=== PATIENT | female | born 1980 | race Caucasian/White ===

== ENCOUNTER → 2016-12-23 | Outpatient (REF) | payer OTHER ==
[2016-12-23 19:11] LABS: MEAN CORPUSCULAR HEMOGLOBIN 30.7 pg (27.0-33.0); MEAN CORPUSCULAR HGB CONC 34.9 g/dl (32.0-36.5); MEAN CORPUSCULAR VOLUME 88.1 fl (80.0-96.0); RED CELL DISTRIBUTION WIDTH 12.2 % (11.5-14.5); WHITE BLOOD COUNT 10.4 K/mm3 (4.0-10.0)
[2016-12-23 19:58] LABS: HCG, SERUM QUANTITATIVE 43219 MIU/ML
== END ==
LOC: M LAB REF 17:02
PROVIDERS: ATTEND Obstetrics & Gynecology
DX: O36.80X0 Pregnancy with inconclusive fetal viability, not applicable or unspecified (principal)

== ENCOUNTER → 2017-05-15 | Outpatient (CLI) | payer OTHER ==
[2017-05-15 19:03] LABS: MEAN CORPUSCULAR HEMOGLOBIN 31.6 pg (27.0-33.0); MEAN CORPUSCULAR HGB CONC 34.8 g/dl (32.0-36.5); MEAN CORPUSCULAR VOLUME 90.7 fl (80.0-96.0); RED CELL DISTRIBUTION WIDTH 12.4 % (11.5-14.5); WHITE BLOOD COUNT 12.2 K/mm3 (4.0-10.0)
== END ==
LOC: M WUC 11:09
PROVIDERS: ATTEND Obstetrics & Gynecology
DX: Z34.82 Encounter for supervision of other normal pregnancy, second trimester (principal); Z3A.26 26 weeks gestation of pregnancy

== ENCOUNTER 2017-08-11 08:33 | Inpatient (IN) | payer OTHER ==
[~2017-08-11] VITALS: Ht 167.6 cm; Wt 82.7 kg
[2017-08-11] VITALS (32 sets, daily range): BP systolic 86–171; BP diastolic 50–102
[2017-08-11] MEDS ORDERED: LACTATED RINGER'S 1000 ML IV STA (08:43)
[2017-08-11] MEDS ORDERED: LR 1,000 ML IV SCH (08:43)
[2017-08-11 09:15] LABS: MEAN CORPUSCULAR HEMOGLOBIN 30.5 pg (27.0-33.0); MEAN CORPUSCULAR HGB CONC 35.1 g/dl (32.0-36.5); MEAN CORPUSCULAR VOLUME 87.1 fl (80.0-96.0); PLATELET COUNT, AUTOMATED 303 10^3/uL (150-450); RED CELL DISTRIBUTION WIDTH 12.4 % (11.5-14.5); WHITE BLOOD COUNT 23.3 10^3/uL (4.0-10.0)
[2017-08-11] MEDS ORDERED: PRENTAB9 PO (09:16)
[2017-08-11 09:28] LABS: ALT/SGPT 25 U/L (12-78); AST/SGOT 20 U/L (7-37); BILIRUBIN,TOTAL 0.7 MG/DL (0.2-1.0); CREATININE FOR GFR 0.76 MG/DL (0.55-1.02); GLOMERULAR FILTRATION RATE > 60.0 (>60); URIC ACID 3.5 MG/DL (2.6-6.0)
[2017-08-11] MEDS ORDERED: OXYTOCIN 30 UNITS IN 0.9% NaCl 500ML IV BAG (J2590) As Ordered ONE (09:28)
[2017-08-11] MEDS ORDERED: FENTANYL 2MCG/ML ROPIVACAINE 0.2% IN 0.9% NACL 200ML IVBAG As Ordered ONE (09:28)
--- NOTE | 2017-08-11 10:42 | HPEPDOC ---
Obstetrical History & Physical General Date of Admission Aug 11, 2017 at 08:33 Primary Care Physician: TASIA ALLAN CNM History of Present Illness Patient is a 36-year-old female who is 40 weeks gestation with an CEASAR of based off of her 1st trimester ultrasound and consistent with her LMP. She initiated care in her 1st trimester with [facility]. Her care has been complicated by AMA and now recently diagnosed based off of her BP's today with GHTN. She presents to L&D in active labor. Reports active movement, bloody show, and contractions. Denies leaking of fluid. 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), Human papillomavirus(HPV) Past Medical History Surgical History: Denies/None Family History Significant Family History: Cancer (lung) Social History Marital Status: Family situation: Spouse/partner home Psychosocial History: No pertinent psych hx * Smoker: former Smoker Alcohol: Denies Drugs: denies Abuse Violence Screening Have you been hit/kicked/slapp: No Have you been sexually assault: No Allergies Coded Allergies: No Known Allergies (Unverified , 08/11/17) Medications Scheduled Multivitamins/ ( 27-0.8 mg) 1 Tab Tab, 1 TAB PO DAILY Physical Examination Physical Examination GENERAL: Alert and oriented times three. BREAST: . ABDOMEN: Gravid and non-tender to touch. FETUS: Is vertex (VTX) by sterile vaginal examination (SVE), fetus is vertex ( VTX) by Ashwin. HEART RATE: Regular rate and rhythm. LUNGS: Clear to auscultation (CTA). EXTREMITIES: No edema. No clonus. Deep tendon reflexes (DTRs) + . Vital Signs/I&O Vital Signs Date Time Temp Pulse Resp B/P (MAP) Pulse Ox O2 Delivery O2 Flow Rate FiO2 08/11/17 08:53 99.7 88 18 128/73 (91) Room Air I&O- Last 24 Hours up to 6 AM 08/12/17 06:00 Intake Total 1000 ml Balance 1000 ml Laboratory Data 24H LABS Laboratory Tests 2 08/11/17 08:39: Serology Scanned Report Hepatitis B Testing 08/11/17 08:51: Nucleated Red Blood Cells % (auto) 0.0, Glomerular Filtration Rate > 60.0, Creatinine 0.76, Aspartate Amino Transf (AST/SGOT) 20, Alanine Aminotransferase (ALT/SGPT) 25, Lactate Dehydrogenase 146, Total Bilirubin 0.7, Uric Acid 3.5, Urine Amphetamines Screen NEGATIVE, Urine Benzodiazepines Screen NEGATIVE, Urine Opiates Screen NEGATIVE, Urine Methadone Screen NEGATIVE, Urine Barbiturates Screen NEGATIVE, Urine Phencyclidine Screen NEGATIVE, Urine Cocaine Metabolite Screen NEGATIVE, Urine Cannabinoids Screen NEGATIVE CBC/BMP Laboratory Tests 08/11/17 08:51 Red Blood Count 4.19, Mean Corpuscular Volume 87.1, Mean Corpuscular Hemoglobin 30.5, Mean Corpuscular Hemoglobin Concent 35.1, Red Cell Distribution Width 12.4 , Aspartate Amino Transf (AST/SGOT) 20, Alanine Aminotransferase (ALT/SGPT) 25, Lactate Dehydrogenase 146, Total Bilirubin 0.7, Uric Acid 3.5 Item Value Date Time Creatinine 0.76 MG/DL 08/11/17 0851 Glomerular Filtration Rate > 60.0 08/11/17 0851 Uric Acid 3.5 MG/DL 08/11/17 0851 Total Bilirubin 0.7 MG/DL 08/11/17 0851 Aspartate Amino Transf (AST/SGOT) 20 U/L 08/11/17 0851 Alanine Aminotransferase (ALT/SGPT) 25 U/L 08/11/17 0851 Lactate Dehydrogenase 146 U/L 08/11/17 0851 Urine Culture: No Growth Pertinent Laboratoy Data Blood Type: O+ RBC Antibody Screen: Negative HIV: Negative Hepatitis B: Negative Hepatitis C: Negative Rapid Plasma Reagin: Nonreactive Rubella: Immune Chlamydia/Gonorrhea: Negative Group B Streptococcus: Negative Quad Screen Test: Negative Glucose Tolerance Test: 115 Vaginal Examination Dilation: 9 cm Effacement: Other (100%) Station: 0 Presentation: Cephalic presentation Position: Vertex (occiput) Assessment Heart Rate (FHR): 135 Variability: Moderate Accelerations: Positive Decelerations: Early Tocometer Contractions: Yes Frequency: regular Strength: palpated as strong Multi-drug resistant Organism: No history of MDRO Assessment/Plan Assessment IUP at 40 weeks gestation GBS negative active labor Category I FHR tracing Plan Admit to labor and delivery. Dressmaker Or Tailor and consent. Diet: clears. OOB ad radhika. Group B Streptococcus (GBS) negative. Labs and intravenous (IV) per unit protocol. Lactated Ringers (LR): Bolus 800 mL, then at 125 mL/hr. Anesthesia consult per patient's desire Anticipate normal spontaneous delivery (). TASIA ALLAN CNM Aug 11, 2017 10:42
[2017-08-11] MEDS ORDERED: EPIDURAL COMMENT XX SCH (11:00)
[2017-08-11] MEDS ORDERED: ONDANSETRON 4MG/2ML VIAL (J2405) IV PRN (11:00)
[2017-08-11] MEDS ORDERED: ePHEDrine SULFATE 25 MG/5 ML(5MG/ML) SYRINGE IV PRN (11:00)
[2017-08-11] MEDS ORDERED: LACTATED RINGER'S 1000 ML IV PRN (11:00)
[2017-08-11] MEDS ORDERED: FENTANYL/ROPIVACAINE/NACL BAG 200 ML EPIDURAL SCH (11:00)
[2017-08-11] MEDS ORDERED: diphenhydrAMINE INJ 50MG/ML VIAL (J1200) IV PRN (11:00)
[2017-08-11] MEDS ORDERED: NALOXONE INJ 0.4 MG/1 ML VIAL (J2310) IV PRN (11:00)
[2017-08-11] MEDS ORDERED: EPIDURAL/PCA KEYS XX PRN (11:00)
[2017-08-11] MEDS ORDERED: REFRIGERATOR IV KEYS XX PRN (11:00)
[2017-08-11] MEDS ORDERED: OXYTOCIN DRIP 30 UNITS in APPROPRIATE DILUENT 1 EA IV SCH (14:38)
[2017-08-11] MEDS ORDERED: RHOGAM 300 MCG (1500 IU) INJ (J2790) IM SCH (14:45)
[2017-08-11] MEDS ORDERED: DOCUSATE SODIUM 100 MG CAP PO PRN (14:45)
[2017-08-11] MEDS ORDERED: ANUSOL HC CREAM 30GM TOP PRN (14:45)
[2017-08-11] MEDS ORDERED: MEASLES,MUMPS,RUBELLA VACCINE INJ (MMR-II) (90707) SC SCH (14:45)
[2017-08-11] MEDS ORDERED: DIBUCAINE 1% OINTMENT 30GM TOP PRN (14:45)
[2017-08-11] MEDS ORDERED: ACETAMINOPHEN 500 MG TAB PO PRN (14:45)
[2017-08-11] MEDS ORDERED: METHYLERGONOVINE MALEATE 0.2 MG TAB PO PRN (14:45)
[2017-08-11] MEDS: PRENATAL VITAMINS CHEWABLE TABLET PO SCH (17:00)
[2017-08-11] MEDS: IBUPROFEN 800 MG TAB PO PRN (20:02)
[2017-08-12 06:32] VITALS: BP 113/60
[2017-08-12] MEDS: PRENATAL VITAMINS CHEWABLE TABLET PO SCH (08:53)
[2017-08-12] MEDS: IBUPROFEN 800 MG TAB PO PRN ×2 (12:54→20:04)
--- NOTE | 2017-08-12 16:50 | DNPDOC ---
[facility] Delivery Note Delivery Note DATE OF DELIVERY: 08/11/17 AT 1200 PROCEDURE: Spontaneous vaginal delivery/ section. PROVIDER: Tasia Bernal CNM, HUI ANESTHESIA: epidural. ESTIMATED BLOOD LOSS: 350 mL. FINDINGS: 7 pounds 2 ounces, 3240 grams, male infant, Score 9/9, AMA, GHTN. DELIVERY SUMMARY: Patient is a 36-year-old now at 40 weeks gestation who presented to L&D in active labor. She received an epidural for pain management. She progressed to fully dilated at 10:46 and pushed to a live male infant in the CEDRIC position with restitution to ROT at 12:00. The anterior shoulder delivered with ease and the corpus immediately followed. The baby was placed on the maternal abdomen active and crying. The cord was clamped x 2 after pulsation ceased and cut by the FOB. There was a 3-vessel cord note.d The placenta delivered intact and spontaneously at 12:05. Uterine hemostasis was achieved via rapid infusion of IV Pitocin and uterine fundal massage. The vagina and perineum were inspected and found to have a 2nd degree perineal laceration that was repaired with a 3.0 Vicryl Rapide and a right labial laceration that was repaired with a 4.0 Vicryl Rapide. Both mom and baby are in stable condition. She breastfed well in the room. TASIA BERNAL CNM Aug 12, 2017 16:50
[2017-08-12 17:48] VITALS: BP 119/62
[2017-08-13 06:00] VITALS: BP 135/80
[2017-08-13] MEDS: IBUPROFEN 800 MG TAB PO PRN (07:48)
[2017-08-13] MEDS: PRENATAL VITAMINS CHEWABLE TABLET PO SCH (08:10)
[2017-08-13] MEDS ORDERED: IBUP-1114 PO (11:20)
[2017-08-13] MEDS ORDERED: ACET50TA PO (11:20)
== END 2017-08-13 12:30 | disposition home or self-care (01) | DRG 775 ==
LOC: M LDI 08:33 → M OBS 14:47
PROVIDERS: ADMIT Obstetrics & Gynecology; ATTEND Obstetrics & Gynecology
PROC: 10E0XZZ Delivery of Products of Conception, External Approach (ICD-10-PCS; principal; 2017-08-11)
PROC: 0KQM0ZZ Repair Perineum Muscle, Open Approach (ICD-10-PCS; 2017-08-11)
DX: O48.0 Post-term pregnancy (principal); Z37.0 Single live birth; Z3A.40 40 weeks gestation of pregnancy; O13.4 Gestational [pregnancy-induced] hypertension without significant proteinuria, complicating childbirth; O70.1 Second degree perineal laceration during delivery

== ENCOUNTER → 2018-02-18 | Outpatient (REF) | payer OTHER ==
[2018-02-18 11:03] LABS: HEMATOCRIT 41.3 % (36.0-47.0); HEMOGLOBIN 14.3 g/dl (12.0-15.5); MEAN CORPUSCULAR HEMOGLOBIN 30.5 pg (27.0-33.0); MEAN CORPUSCULAR HGB CONC 34.6 g/dl (32.0-36.5); MEAN CORPUSCULAR VOLUME 88.1 fl (80.0-96.0); PLATELET COUNT, AUTOMATED 342 10^3/uL (150-450); RED BLOOD COUNT 4.69 10^6/uL (4.00-5.40); RED CELL DISTRIBUTION WIDTH 12.3 % (11.5-14.5); WHITE BLOOD COUNT 6.7 10^3/uL (4.0-10.0)
[2018-02-18 11:52] LABS: ALBUMIN/GLOBULIN RATIO 1.11 (1.00-1.93); ALKALINE PHOSPHATASE 129 U/L (45-117); ALT/SGPT 29 U/L (12-78); ANION GAP 6 MEQ/L (8-16); AST/SGOT 16 U/L (7-37); BILIRUBIN,TOTAL 0.6 MG/DL (0.2-1.0); BLOOD UREA NITROGEN 15 MG/DL (7-18); CALCIUM LEVEL 9.1 MG/DL (8.5-10.1); CARBON DIOXIDE LEVEL 27 MEQ/L (21-32); CHLORIDE LEVEL 106 MEQ/L (98-107); CHOLESTEROL LEVEL 167 MG/DL (<200); CHOLESTEROL RISK RATIO 2.287 (<5); CREATININE FOR GFR 0.81 MG/DL (0.55-1.30); FREE T4 0.91 NG/DL (0.76-1.46); GLOMERULAR FILTRATION RATE > 60.0 (>60); GLUCOSE, FASTING 86 MG/DL (70-100); HDL CHOLESTEROL 73 MG/DL (>40); LDL CHOLESTEROL 85.8 MG/DL (<100); NON-HDL-C 94 MG/DL; POTASSIUM SERUM 4.3 MEQ/L (3.5-5.1); SODIUM LEVEL 139 MEQ/L (136-145); TOTAL PROTEIN 7.6 GM/DL (6.4-8.2); TRIGLYCERIDES LEVEL 41 MG/DL (<150)
== END ==
LOC: M LABDRAW1 09:45
DX: Z01.419 Encounter for gynecological examination (general) (routine) without abnormal findings (principal)

== ENCOUNTER → 2019-04-18 | Outpatient (CLI) | payer OTHER ==
[~2019-04-18] MED LIST: IBUP-1114 PO; MAPA500T2 PO; PRENTAB9 PO
[2019-04-18 17:37] LABS: ALT/SGPT 22 U/L (12-78); BILIRUBIN,TOTAL 0.4 MG/DL (0.2-1.0); GLOMERULAR FILTRATION RATE > 60.0 (>60); LDH LACTATE DEHYDROGENASE 133 U/L (84-246); URIC ACID 1.8 MG/DL (2.6-6.0)
[2019-04-18 17:46] LABS: BASO % 0.4 % (0.0-1.0); EOS # 0.6 10^3/uL (0.0-0.50); EOS % 5.6 % (0.0-3.0); HEMATOCRIT 38.9 % (36.0-47.0); HEMOGLOBIN 13.1 g/dl (12.0-15.5); LYMPH # 2.5 10^3/uL (1.5-4.5); LYMPH % 24.6 % (24.0-44.0); MEAN CORPUSCULAR HEMOGLOBIN 30.8 pg (27.0-33.0); MEAN CORPUSCULAR HGB CONC 33.7 g/dl (32.0-36.5); MEAN CORPUSCULAR VOLUME 91.5 fl (80.0-96.0); MONO # 0.8 10^3/uL (0.0-0.8); MONO % 7.5 % (0.0-5.0); NEUTROPHILS # 6.1 10^3/uL (1.8-7.7); NEUTROPHILS % 61.6 % (36.0-66.0); PLATELET COUNT, AUTOMATED 310 10^3/uL (150-450); RED BLOOD COUNT 4.25 10^6/uL (4.00-5.40)
[2019-04-18 17:49] LABS: TOTAL PROTEIN,RANDOM URINE < 5.0 MG/DL (0.0-12.0)
[2019-04-18 21:35] LABS: CHLAMYDIA DNA AMPLIFICATION NEGATIVE (NEGATIVE); GC DNA AMPLIFICATION NEGATIVE (NEGATIVE)
[2019-04-19 11:08] LABS: RUBELLA IgG QUALITATIVE IMMUNE (IMMUNE)
[2019-04-19 11:36] LABS: HEPATITIS C VIRUS ABY INDEX 0.1 INDEX (<0.8)
[2019-04-19 11:37] LABS: HIV 1&2 SCREEN CENTAUR NEGATIVE (NEGATIVE)
== END ==
LOC: M WUC 14:19
PROVIDERS: ATTEND Advanced Practice Midwife
DX: Z36.89 Encounter for other specified antenatal screening (principal)

== ENCOUNTER → 2019-06-26 | Outpatient (CLI) | payer OTHER ==
[2019-06-26 16:06] LABS: CHLAMYDIA DNA AMPLIFICATION NEGATIVE (NEGATIVE); GC DNA AMPLIFICATION NEGATIVE (NEGATIVE)
--- NOTE | 2019-06-27 07:18 | REP ---
Clinical: Anatomical evaluation. Comparison: none. Findings: Examination demonstrates a single live intrauterine in cephalic presentation. motion is identified by technologist. Placenta is noted posterior and grade zero without evidence for placenta previa or abruption. Amniotic fluid volume is normal. Cervix measures 5.8 cm in length and appears closed. No evidence for nuchal cord. Gestational age by LMP 18 weeks 0 days with CEASAR 11/27/2019 . Gestational age by current measurements 17 weeks 6-day with CEASAR is 11/28/2019 . FHR equals 150 beats per minute. BPD 3.9 cm 18 weeks 0 days HC 14.5 cm 17 weeks 5 days AC 11.8 cm 17 weeks 4 days FL 2.6 cm 17 weeks 6 days HL 2.6 cm 18 weeks 0 days HC/AC ratio 1.2 through Estimated weight right 205 grams ( 35th percentile). Anatomical assessment demonstrates normal structures including cranium, choroid plexus, cavum, cerebellum/posterior fossa, lungs, diaphragm, stomach, cord insertion/three-vessel cord, kidneys/bladder, spine, and extremities. Impression: Single live intrauterine in cephalic presentation demonstrating appropriate growth. Limited facial features and heart/ventricular outflow tracts. Remainder of the anatomical assessment is complete and normal. Electronically Signed by Lucas Huggins MD 06/27/2019 07:10 A
== END ==
LOC: M RAD 08:05
PROVIDERS: ATTEND Advanced Practice Midwife
DX: Z34.82 Encounter for supervision of other normal pregnancy, second trimester (principal); Z3A.18 18 weeks gestation of pregnancy; O09.522 Supervision of elderly multigravida, second trimester

== ENCOUNTER → 2019-07-20 | Outpatient (CLI) | payer OTHER ==
--- NOTE | 2019-07-20 20:21 | REP ---
Clinical: Anatomical evaluation. Comparison: 06/26/2019 . Findings: Examination demonstrates a single live intrauterine in breech presentation. motion is identified by technologist. Placenta is noted anterior and grade zero without evidence for placenta previa or abruption. Amniotic fluid volume is normal. Cervix measures 3.7 cm in length and appears closed. Nuchal cord cannot be excluded. Gestational age by LMP 21 weeks 3 days with CEASAR 11/27/2019 . Gestational age by current measurements 22 weeks 1 day with CEASAR 11/22/2019 . FHR equals 153 beats per minute. Estimated weight 499 grams ( 80th percentile). Anatomical assessment demonstrates normal structures including cranium, choroid plexus, cavum, cerebellum/posterior fossa, facial features, lungs, four-chamber heart/ventricular outflow tracts, diaphragm, stomach, cord insertion/three-vessel cord, kidneys/bladder, spine, and extremities. Impression: Single live intrauterine in breech presentation demonstrating appropriate interval growth. Anatomical assessment is complete and normal. No gross abnormalities are identified. 2. Nuchal cord cannot be excluded. Electronically Signed by Lucas Huggins MD 07/20/2019 08:12 P
== END ==
LOC: M RAD 16:34
PROVIDERS: ATTEND Advanced Practice Midwife
DX: Z34.82 Encounter for supervision of other normal pregnancy, second trimester (principal); Z3A.22 22 weeks gestation of pregnancy

== ENCOUNTER → 2019-09-02 | Outpatient (CLI) | payer OTHER ==
[2019-09-02 13:24] LABS: HEMATOCRIT 34.1 % (36.0-47.0); HEMOGLOBIN 11.5 g/dl (12.0-15.5); MEAN CORPUSCULAR HEMOGLOBIN 30.8 pg (27.0-33.0); MEAN CORPUSCULAR HGB CONC 33.7 g/dl (32.0-36.5); MEAN CORPUSCULAR VOLUME 91.4 fl (80.0-96.0); PLATELET COUNT, AUTOMATED 281 10^3/uL (150-450); RED BLOOD COUNT 3.73 10^6/uL (4.00-5.40); WHITE BLOOD COUNT 10.3 10^3/uL (4.0-10.0)
== END ==
LOC: M WUC 08:47
PROVIDERS: ATTEND Advanced Practice Midwife
DX: Z34.82 Encounter for supervision of other normal pregnancy, second trimester (principal)

== ENCOUNTER → 2019-11-20 | Outpatient (REF) | payer OTHER | LOC: M SFHCWAGY 11:13 | PROVIDERS: ATTEND Advanced Practice Midwife | DX: Z34.93 Encounter for supervision of normal pregnancy, unspecified, third trimester (principal) ==

== ENCOUNTER → 2019-11-28 | Outpatient (REF) | payer OTHER ==
[2019-11-28 18:07] LABS: HEMATOCRIT 40.4 % (36.0-47.0); HEMOGLOBIN 13.4 g/dl (12.0-15.5); MEAN CORPUSCULAR HEMOGLOBIN 29.6 pg (27.0-33.0); MEAN CORPUSCULAR HGB CONC 33.2 g/dl (32.0-36.5); MEAN CORPUSCULAR VOLUME 89.2 fl (80.0-96.0); PLATELET COUNT, AUTOMATED 265 10^3/uL (150-450); RED BLOOD COUNT 4.53 10^6/uL (4.00-5.40); WHITE BLOOD COUNT 9.9 10^3/uL (4.0-10.0)
[2019-11-28 18:23] LABS: CREATININE,RANDOM URINE 60.2 MG/DL; TOTAL PROTEIN,RANDOM URINE 22.9 MG/DL (0.0-12.0)
[2019-11-28 18:25] LABS: ALT/SGPT 17 U/L (12-78); BILIRUBIN,TOTAL 0.5 MG/DL (0.2-1.0); CREATININE FOR GFR 0.54 MG/DL (0.55-1.30); GLOMERULAR FILTRATION RATE > 60.0 (>60); LDH LACTATE DEHYDROGENASE 146 U/L (84-246)
== END ==
LOC: M PLALAB 12:19
PROVIDERS: ATTEND Advanced Practice Midwife
DX: O13.3 Gestational [pregnancy-induced] hypertension without significant proteinuria, third trimester (principal)

== ENCOUNTER 2019-11-29 11:08 | Inpatient (IN) | payer OTHER ==
[2019-11-29] VITALS (11 sets, daily range): BP systolic 113–145; BP diastolic 55–89
[~2019-11-29] VITALS: Ht 167.6 cm; Wt 82.7 kg
[2019-11-29 12:16] LABS: HEMOGLOBIN 12.4 g/dl (12.0-15.5); MEAN CORPUSCULAR HEMOGLOBIN 29.9 pg (27.0-33.0); MEAN CORPUSCULAR HGB CONC 34.4 g/dl (32.0-36.5); MEAN CORPUSCULAR VOLUME 86.7 fl (80.0-96.0); PLATELET COUNT, AUTOMATED 273 10^3/uL (150-450); RED BLOOD COUNT 4.15 10^6/uL (4.00-5.40); WHITE BLOOD COUNT 10.1 10^3/uL (4.0-10.0)
[2019-11-29] MEDS: miSOPROStol 50 MCG 1/2 TAB (S0191) PO SCH ×2 (12:37→18:46)
[2019-11-29 12:39] LABS: ALT/SGPT 16 U/L (12-78); BILIRUBIN,TOTAL 0.5 MG/DL (0.2-1.0); CREATININE FOR GFR 0.52 MG/DL (0.55-1.30); GLOMERULAR FILTRATION RATE > 60.0 (>60); LDH LACTATE DEHYDROGENASE 145 U/L (84-246)
--- NOTE | 2019-11-29 16:30 | HPE ---
DATE OF ADMISSION: 11/29/2019 Tenisha is a 38-year-old, 3, para 1-0-1-1, at 40-2/7 weeks gestation, estimated date of confinement (EDC) of 11/27/2019 based on last menstrual period and confirmed by first trimester ultrasound. She presents to labor and delivery today following a followup appointment in the office for blood pressure check. She was noted to have elevated blood pressure check yesterday as well as today. She denies headache, visual disturbances, epigastric pain, and right upper quadrant discomfort. She denies regular painful contractions, vaginal bleeding or leakage of fluid. The fetus has been active. care was initiated at [facility] in the first trimester. Her course complicated by a history of gestational hypertension in the prior , advanced maternal age, she did decline genetic serum screening labs, and asthma. PAST MEDICAL HISTORY: Gestational hypertension. Childhood asthma. Abnormal Pap smear. Childhood varicella. SURGERIES: Colposcopy. FAMILY HISTORY: Lung cancer, breast cancer. SOCIAL HISTORY: The patient is . She is a nonsmoker. She denies alcohol and drug use. She has no history of any sexually transmitted infection. She denies history of abuse physical, sexual and emotional. ALLERGIES: NO KNOWN DRUG ALLERGIES. CURRENT MEDICATIONS: - Ventolin inhaler as needed - vitamins OBJECTIVE: Upon arrival to labor and delivery this morning temperature 98.4, pulse 88, respirations 18, blood pressure 140/88 with a followup of 123/75. She is alert and oriented times three. heart rate is 135 with moderate variability, positive accelerations, negative decelerations. There is no pattern of regular contractions. Her abdomen is gravid, cephalic presentation. Estimated weight 7-1/2 pounds. Sterile vaginal exam performed in the office setting, fingertip dilation, 50% effaced, and minus 2 station, very posterior and extremely soft. No show with the exam. ASSESSMENT: Intrauterine at 40-2/7 weeks, heart rate category 1, preeclampsia. PLAN: Admit the patient to labor and delivery. Saline lock. Out of bed ad radhika. Regular diet at this time. Routine lab work with the addition of a pre-eclamptic profile again. Misoprostol 50 mcg by mouth every 4 hours for cervical ripening and then likely will start IV Pitocin. May consider a round to augment her labor. The patient does desire an epidural when she is in active labor. I did review risks, benefits, and alternatives with the patient. All of her questions were answered. I do anticipate cervical ripening, labor and spontaneous vaginal delivery.
[2019-11-29] MEDS ORDERED: LR 1,000 ML IV ONE (17:30)
[2019-11-29] MEDS ORDERED: OXYTOCIN DRIP 30 UNITS in IV 1 EA IV SCH (20:45)
[2019-11-29] MEDS: LR 1,000 ML IV SCH (23:18)
[2019-11-30] VITALS (31 sets, daily range): BP systolic 106–165; BP diastolic 55–91
[2019-11-30] MEDS ORDERED: FENTANYL 2MCG/ML ROPIVACAINE 0.2% IN 0.9% NACL 100ML IVBAG As Ordered ONE (01:45)
[2019-11-30 01:49] LABS: HEMATOCRIT 40.3 % (36.0-47.0); HEMOGLOBIN 13.5 g/dl (12.0-15.5); MEAN CORPUSCULAR HEMOGLOBIN 29.6 pg (27.0-33.0); MEAN CORPUSCULAR HGB CONC 33.5 g/dl (32.0-36.5); MEAN CORPUSCULAR VOLUME 88.4 fl (80.0-96.0); PLATELET COUNT, AUTOMATED 261 10^3/uL (150-450); RED BLOOD COUNT 4.56 10^6/uL (4.00-5.40); WHITE BLOOD COUNT 13.5 10^3/uL (4.0-10.0)
[2019-11-30] MEDS ORDERED: EPIDURAL COMMENT XX SCH (02:30)
[2019-11-30] MEDS ORDERED: ePHEDrine SULFATE 25 MG/5 ML(5MG/ML) SYRINGE IV PRN (02:30)
[2019-11-30] MEDS ORDERED: NALOXONE INJ 0.4 MG/1 ML VIAL (J2310) IV PRN (02:30)
[2019-11-30] MEDS ORDERED: diphenhydrAMINE INJ 50MG/ML VIAL (J1200) IV PRN (02:30)
[2019-11-30] MEDS ORDERED: REFRIGERATOR IV KEYS XX PRN (02:30)
[2019-11-30] MEDS ORDERED: EPIDURAL/PCA KEYS XX PRN (02:30)
[2019-11-30] MEDS ORDERED: FENTANYL/ROPIVACAINE/NACL BAG 100 ML EPIDURAL SCH (02:30)
[2019-11-30] MEDS ORDERED: ONDANSETRON 4MG/2ML VIAL (J2405) IV PRN (02:30)
[2019-11-30] MEDS: LR 1,000 ML IV SCH (03:18)
[2019-11-30] MEDS ORDERED: OXYTOCIN DRIP 30 UNITS in IV 1 EA IV SCH (05:27)
[2019-11-30] MEDS ORDERED: MEASLES,MUMPS,RUBELLA VACCINE INJ (MMR-II) (90707) SC SCH (05:30)
[2019-11-30] MEDS ORDERED: IBUPROFEN 600 MG TAB PO PRN (05:30)
[2019-11-30] MEDS ORDERED: DOCUSATE SODIUM 100 MG CAP PO PRN (05:30)
[2019-11-30] MEDS ORDERED: RHOGAM 300 MCG (1500 IU) INJ (J2790) IM SCH (05:30)
[2019-11-30] MEDS ORDERED: ANUSOL HC CREAM 30GM TOP PRN (05:30)
[2019-11-30] MEDS ORDERED: ACETAMINOPHEN TAB 650MG DOSE (2X325MG) PO PRN (05:30)
--- NOTE | 2019-11-30 05:58 | DN ---
DATE OF DELIVERY: 11/29/2019 Tenisha is a 38-year-old 3, para 2-0-1-2 now who was admitted to labor and delivery for induction of labor due to preeclampsia. Misoprostol and IV Pitocin was used and labor did ensue. She utilized an epidural for her labor coping. She had assisted rupture of membranes for meconium stained fluid at 0358. She reached complete dilation at 0414. She pushed to a normal spontaneous vaginal delivery of a live male infant in right occiput anterior (KERA) position with restitution to right occiput transverse (ROT) position at 0450. There was a cord draped over the left shoulder. The was placed on the maternal abdomen crying and active. His mouth and nares were bulb suctioned. The cord was clamped times two and cut by the father of the baby under my direction. Spontaneous expulsion of an intact placenta with three-vessel cord by Holt mechanism was at 0454. Uterine hemostasis achieved with uterine fundal massage and IV Pitocin rapid infusion. Estimated blood loss 350 mL. The perineum and vagina inspected noted have a right labial laceration as well as a first-degree midline laceration. The lacerations were repaired with 3-0 Rapide in the usual fashion. The male weighed 3870 grams, 8 pounds 9 ounces and 05/22. The family is uncertain as to what they are going to name their son at this time. The mom is going to breastfeed him. At the close of delivery lap counts, needle counts and instrument counts were correct and verified.
[2019-11-30] MEDS: PRENATAL VITAMINS CHEWABLE TABLET PO SCH (08:09)
[2019-11-30] MEDS: IBUPROFEN 800 MG TAB PO PRN ×2 (08:09→16:27)
[2019-11-30] MEDS: DIBUCAINE 1% OINTMENT 30GM TOP PRN (11:39)
[2019-11-30] MEDS: ACETAMINOPHEN 500 MG TAB PO PRN ×2 (12:55→20:19)
[2019-12-01 05:40] VITALS: BP 140/79
[2019-12-01] MEDS: IBUPROFEN 800 MG TAB PO PRN ×2 (07:11→17:25)
[2019-12-01] MEDS: PRENATAL VITAMINS CHEWABLE TABLET PO SCH (07:11)
[2019-12-01] MEDS ORDERED: ACET-683 PO (08:00)
[2019-12-01] MEDS ORDERED: IBUP80TA PO (08:00)
[2019-12-01] MEDS: DIBUCAINE 1% OINTMENT 30GM TOP PRN (17:25)
[2019-12-01 17:49] VITALS: BP 131/80
[2019-12-02] MEDS: ACETAMINOPHEN 500 MG TAB PO PRN ×2 (00:20→08:24)
[2019-12-02] MEDS: IBUPROFEN 800 MG TAB PO PRN ×2 (03:06→12:10)
[2019-12-02 06:15] VITALS: BP 139/75
[2019-12-02] MEDS: PRENATAL VITAMINS CHEWABLE TABLET PO SCH (08:24)
== END 2019-12-02 13:57 | disposition home or self-care (01) | DRG 807 ==
LOC: M LDI 11:08 → M OBS 11-30 08:05
PROVIDERS: ADMIT Advanced Practice Midwife; ATTEND Advanced Practice Midwife
PROC: 10E0XZZ Delivery of Products of Conception, External Approach (ICD-10-PCS; principal; 2019-11-29)
PROC: 10907ZC Drainage of Amniotic Fluid, Therapeutic from Products of Conception, Via Natural or Artificial Opening (ICD-10-PCS; 2019-11-29)
PROC: 0HQ9XZZ Repair Perineum Skin, External Approach (ICD-10-PCS; 2019-11-29)
PROC: 3E0P7GC Introduction of Other Therapeutic Substance into Female Reproductive, Via Natural or Artificial Opening (ICD-10-PCS; 2019-11-29)
DX: O14.04 Mild to moderate pre-eclampsia, complicating childbirth (principal); Z37.0 Single live birth; O48.0 Post-term pregnancy; Z3A.40 40 weeks gestation of pregnancy; O77.0 Labor and delivery complicated by meconium in amniotic fluid; O69.82X0 Labor and delivery complicated by other cord entanglement, without compression, not applicable or unspecified; O70.0 First degree perineal laceration during delivery

== ENCOUNTER → 2020-09-05 | Outpatient (CLI) | payer SELFPAY ==
[~2020-09-05] MED LIST changes: +ACET-683 PO; +IBUP80TA PO
== END ==
LOC: M LABSMTC 12:24
PROVIDERS: ATTEND Pediatrics
DX: Z20.828 Contact with and (suspected) exposure to other viral communicable diseases (principal)

== ENCOUNTER → 2020-09-11 | Outpatient (CLI) | payer SELFPAY | LOC: M LABSMTC 09:51 | PROVIDERS: ATTEND Pediatrics | DX: Z20.828 Contact with and (suspected) exposure to other viral communicable diseases (principal) ==

== ENCOUNTER → 2021-08-18 | Outpatient (REF) | LOC: M LABSMTC 12:39 | PROVIDERS: ATTEND Pediatrics | DX: Z11.52 Encounter for screening for COVID-19 (principal) ==

== ENCOUNTER → 2023-02-15 | Outpatient (CLI) | payer OTHER | LOC: M WHC 12:40 | PROVIDERS: ATTEND Nurse Practitioner Family | DX: N63.11 Unspecified lump in the right breast, upper outer quadrant (principal) | CPT/HCPCS: 76641; 77066; G0279 ==

== ENCOUNTER → 2025-08-27 | Outpatient (CLI) | payer OTHER | LOC: M WHC 10:33 | PROVIDERS: ATTEND Student in an Organized Health Care Education/Training Program | DX: Z12.31 Encounter for screening mammogram for malignant neoplasm of breast (principal) ==